=== PATIENT | male | born 1945 | race Caucasian/White ===

== ENCOUNTER 2016-07-20 12:18 | Emergency (ER) | payer MEDICARE, BC ==
[2016-07-20] MEDS ORDERED: Sodium Chloride 0.9% 10 ML Syringe FLUSH PRN (12:19)
--- NOTE | 2016-07-20 12:19 | EDM.PDOC ---
ED HPI GENERAL MEDICAL PROBLEM - General Chief Complaint: General Stated Complaint: vomitting abd pain Time Seen by Provider: 07/20/16 12:19 Source of Information: Reports: Patient, Family (), Old records ([facility] chart/EMR) History Limitations: Reports: No limitations - History of Present Illness INITIAL COMMENTS - FREE TEXT/NARRATIVE: The patient was brought to the emergency room via private automobile by his for evaluation of refractory nausea/emesis and dry heaves with symptoms starting at about 6 a.m. this morning after he had coffee and donuts. No known exposure to infection, food poisoning, etc. with symptoms similar to his past post cholecystectomy-type symptoms. Possible history of fever and chills, although temperature not measured with no medications taken to this point. He denies any gross hematuria, dysuria, or other colic type symptoms. No recent history of true abdominal pain, heartburn, melena, gross hematochezia, or any food intolerance, including fatty foods, etc. with mild loose stools earlier this morning. The patient denies any chest pain/pressure, heart flutter, dizziness, orthostasis, orthopnea, diaphoresis, paresthesias, recent decreased exercise tolerance, or any other anginal-type symptoms. The patient also denies any recent cough, wheezing, dyspnea, etc.. Onset: today, sudden Onset Date: 07/20/16 Onset Time: 06:00 Duration: Constant, Getting worse Location: Reports: other (No true pain) Severity: severe (Dry heaves as above) Improves with: Reports: None Worsens with: Reports: None Context: Reports: Other (As above) Associated Symptoms: Reports: fever/chills, nausea/vomiting. Denies: confusion , chest pain, cough, diaphoresis, loss of appetite, seizure (None), shortness of breath, syncope, weakness Treatments [employer]: Reports: Other (see below) (None) - Related Data Allergies Allergy/AdvReac Type Severity Reaction Status Date / Time No Known Allergies Allergy Verified 01/01/16 10:23 Home Meds: Home Meds Aspirin [Leonardo Chewable Aspirin] 81 mg PO DAILY 12/30/15 [History] Colesevelam HCl [Welchol] 3 tab PO BID 12/30/15 [History] Fenofibrate,Micronized [Fenofibrate] 134 mg PO BEDTIME 12/30/15 [History] Lisinopril 5 mg PO DAILY 12/30/15 [History] Multivitamin with Minerals [Multiple Vitamin] 1 tab PO DAILY 12/30/15 [History] [place]-3 Fatty Acids [Fish Oil] 1 tab PO DAILY 07/20/16 [History] Past Medical History HEENT History: Reports: Impaired vision, Other (see below). Denies: Allergic rhinitis, Cataract, Glaucoma, Hard of hearing, Macular degeneration, Retinal detachment Other HEENT History: glasses Cardiovascular History: Reports: High cholesterol, Hypertension, Other (see below). Denies: Afib, Aneurysm, Arrhythmia, Blood clots/VTE/DVT, CAD, Heart Failure, Heart murmur, PR, Pacemaker, PTCA, PVD, Stents, Syncope Other Cardiovascular History: History of dyslipidemia with secondary fatty liver Respiratory History: Reports: COPD, Intubation, previous, Pulmonary fibrosis. Denies: Asthma, Bronchitis, recurrent, Interstitial lung disease, Intubation, difficult, PE, Pneumothorax, Sleep apnea, TB Gastrointestinal History: Reports: Cholelithiasis, Chronic constipation, Colon polyp, GERD, Other (see below). Denies: Bowel obstruction, Celiac disease, Chronic diarrhea, Diverticulosis, Fecal incontinence, Gastritis, Hepatitis, Hiatal hernia, Inflammatory bowel disease, Irritable bowel syndrome, Jaundice, Pancreatitis, PUD Other Gastrointestinal History: History of benign hepatic cysts and renal cysts by CT scan, fatty liver as above, cholecystectomy as below, benign serrated adenoma at the cecum excised by colonoscopy on 08/31/11 Genitourinary History: Reports: BPH. Denies: Acute renal failure, Chronic renal insuffiency, Renal calculus, Retention, urinary, STD, Urinary incontinence , UTI, recurrent Musculoskeletal History: Reports: Arthritis, Back pain, chronic, Fracture, Neck pain, chronic, Osteoarthritis, Other (see below). Denies: Amputation, Fibromyalgia, Gout, RA, SLE Other Musculoskeletal History: History of left-sided rib fractures #6 through 9 on 12/21/01, left medial meniscal tear by MRI on 09/09/07 with no surgery Neurological History: Reports: None, Other (see below). Denies: Brain injury, Cerebral aneurysms, Concussion, CVA, Headaches, chronic, Head trauma, Migraines , MS, Parkinson's, Seizure, TIA Psychiatric History: Reports: None. Denies: Abuse, victim of, ADD, ADHD, Addiction, Anxiety, Dementia, Depression, Psych Hospitalization(s), PTSD, Suicide attempt, Suicidal ideation Endocrine/Metabolic History: Reports: None. Denies: Diabetes, type I, Diabetes , type II, Hypothyroidism, IDDM Hematologic History: Reports: None. Denies: Anemia, B12 deficiency, Blood transfusion(s) Immunologic History: Reports: None. Denies: AIDS, HIV, SLE Oncologic (Cancer) History: Reports: None. Denies: Basal cell carcinoma, Colon , Hodgkin's Lymphoma, Leukemia, Malignant melanoma, Non-Hodgkin's Lymphoma, Prostate, Squamous cell carcinoma Dermatologic History: Reports: None. Denies: Angiodema, Eczema, Psoriasis - Infectious Disease History Infectious Disease History: Reports: Chicken pox. Denies: C-difficile, Measles , Meningitis, Mononucleosis, MRSA, Mumps, Pertussis (whooping cough), Rubella, Shingles, TB, VRE - Past Surgical History Head Surgeries/Procedures: Reports: None HEENT Surgical History: Reports: Oral surgery, Other (see below). Denies: Adenoidectomy, Cataract surgery, Eye surgery, Laser surgery, LASIK, Myringotomy w tube(s), Naso-sinus surgery, Tonsillectomy Other HEENT Surgeries/Procedures: Teeth extractions with chronic caries Cardiovascular Surgical History: Reports: None. Denies: Varicose Respiratory Surgical History: Reports: None. Denies: Thoracentesis GI Surgical History: Reports: Cholecystectomy, Colonoscopy, Polypectomy, Other ( see below). Denies: Appendectomy, EGD, Hernia, abdominal, Hernia, inguinal, Hernia repair/other Other GI Surgeries/Procedures: Colonoscopy on 08/31/11 with biopsy of benign lesion from the cecum as above, laparoscopic cholecystectomy on 01/07/16 Male Surgical History: Reports: Circumcision, Other (see below). Denies: TURP-Transurethral resection of prostate, Vasectomy Other Male Surgeries/Procedures: Circumcision as a child Endocrine Surgical History: Reports: None Neurological Surgical History: Reports: None. Denies: C-Spine, Discectomy, Laminectomy, Lumbar spine, Spinal fusion, Vertebroplasty Musculoskeletal Surgical History: Reports: Arthroscopic procedure, Carpal tunnel , Shoulder surgery, Other (see below). Denies: Amputation, Arthroscopic knee, Ganglion cyst, Joint replacement, ORIF Other Musculoskeletal Surgeries/Procedures:: Rotator cuff repair on right shoulder on 09/28/11, bilateral carpal tunnel release in about 2001 Oncologic Surgical History: Reports: None Dermatological Surgical History: Reports: None - Past Imaging History Past Imaging History: Reports: CAT scan (CT scan of the abdomen and pelvis with IV and oral contrast on 12/30/15 in 01/08/16), MRI (MRI of the right shoulder on 09/05/11, MRI of the left knee on 09/09/07), Stress testing (Cardiolite Stress test on 07/03/03), Ultrasound (Gallbladder ultrasound on 12/31/15) Social & Family History - Family History HEENT: Reports: None. Denies: Allergic rhinitis, Glaucoma, Macular degeneration , Retinal detachment Cardiac: Reports: None. Denies: Afib, Aneurysm, Arrhythmia, Blood clots/VTE/DVT , Bypass, CAD, Heart failure, Heart murmur, High cholesterol, Hypertension, PR, PVD/COD, Syncope Respiratory: Reports: None. Denies: Asthma, COPD, PE, Sleep apnea GI: Reports: None. Denies: Celiac disease, Cholelithiasis, Colon polyps, GERD, GI bleed, Inflammatory bowel disease, Irritable bowel syndrome, PUD : Reports: None. Denies: Dialysis, Renal disease/insufficiency, UTI, recurrent OBGYN: Reports: None. Denies: Endometriosis, Recurrent spontaneous Musculoskeletal: Reports: None. Denies: Gout, RA, SLE Neurological: Reports: Cerebral aneurysms, CVA, Other (see below). Denies: Alzheimers disease, Dementia, Migraines, Parkinson's, Seizure, TIA Other Neurological Family History: Mother with fatal hemorrhagic CVAs secondary to cerebral aneurysm at about age 68 Psychiatric: Denies: Abuse, victim of, ADD, ADHD, Anxiety, Depression, Psych hospitalization(s), PTSD, Suicide attempt Endocrine/Metabolic: Reports: None. Denies: Diabetes, type I, Diabetes, type II , Hypothyroidism, IDDM Hematologic: Reports: None. Denies: Anemia, SLE Immunologic: Reports: None. Denies: AIDS, HIV, Immunosuppression Dermatologic: Reports: None. Denies: Eczema, Psoriasis Oncologic: Reports: Breast, Colon, Lung, Metastatic, Other (see below). Denies : Hodgkin's lymphoma, Leukemia, Lymphoma, Non-Hodgkin's lymphoma, Skin Other Oncologic Family History: Sister with multiple cancers including breast, colon, and lung with probable metastatic disease, another sister with breast cancer in her 70s - Tobacco Use Smoking Status *Q: Current Every Day Smoker Tobacco Use Within Last Twelve Months: Snuff/Dip Years of Tobacco use: 20 Packs/Tins Daily: 0 (One can per week with previous cigarette use in early adulthood and as a teenager) Smoking Cessation Information Provided To Patient: Yes Second Hand Smoke Exposure: No Second Hand Smoke Education Provided: No - Caffeine Use Caffeine Use: Reports: Coffee (2 cups per day), Soda (One soda per day). Denies : Energy drinks, Tea - Alcohol Use Alcohol Use History: Yes Days Per Week of Alcohol Use: 0 (No previous DWIs, problems with alcohol abuse, etc.) Number of Drinks Per Day: 1 (Usually beer only on special occasions) Total Drinks Per Week: 0 Alcohol Use Frequency: Rarely, Socially - Recreational Drug Use Recreational Drug Use: No Drug Use in Last 12 Months: No Recreational Drug Type: Denies: Amphetamines (Speed), Cocaine, Heroin, Inhalants (Glues, Solvents, Aerosols), LSD (Acid), Marijuana/Hashish, Methamphetamine, Morphine - Living Situation & Occupation Living situation: Reports: (1968, 3 children), with family () Occupation: employed (Semiretired [employer]) ED ROS GENERAL - Review of Systems Review Of Systems: See Below Constitutional: Reports: fever, chills. Denies: malaise, weakness, fatigue, night sweats, diaphoresis, decreased appetite, weight loss HEENT: Reports: Glasses. Denies: Dental pain, Ear pain, Eye pain, Throat pain, Throat swelling, Vertigo, Vision change Respiratory: Reports: No Symptoms. Denies: Shortness of Breath, Wheezing, Pleuritic Chest Pain Cardiovascular: Reports: No symptoms. Denies: Chest pain, Blood pressure problem, Claudication, Dyspnea on exertion, Edema, Lightheadedness, Orthopnea, Palpitations, PND, Syncope Endocrine: Reports: no symptoms. Denies: fatigue GI/Abdominal: Reports: Diarrhea (Borderline), Nausea, Vomiting. Denies: Abdominal pain, Anorexia, Black stool, Bloody stool, Constipation, Decreased appetite, Difficulty swallowing, Distension, Flatus, Hematemesis, Hematochezia, Melena, Mucous in stool, Stool incontinence : Reports: no symptoms. Denies: discharge, dysuria, flank pain, frequency, hematuria, incontinence, pain, urgency, urinary retention Musculoskeletal: Reports: no symptoms. Denies: neck pain, shoulder pain, arm pain, leg pain, joint pain Skin: Reports: no symptoms. Denies: diaphoresis, wound Neurological: Reports: No Symptoms. Denies: Confusion, Dizziness, Headache, Numbness, Paresthesia, Syncope, Tingling, Weakness Psychiatric: Reports: No symptoms. Denies: Agitation, Anxiety, Confusion, Depression, Hallucinations Hematologic/Lymphatic: Reports: no symptoms Immunologic: Reports: no symptoms ED EXAM, GENERAL - Physical Exam Exam: See Below Exam Limited By: No limitations General Appearance: alert, WD/WN, anxious (Moderate), mild distress (Mild) Eye Exam: bilateral eye: EOMI, normal inspection (No nystagmus), PERRL Ears: normal external exam, normal canal, hearing grossly normal, normal TMs Nose: normal inspection, normal mucosa, no blood Throat/Mouth: Normal inspection, Normal lips, Normal gums, Normal oropharynx, Normal voice, No airway compromise. No: Normal teeth (Multiple missing teeth with somewhat poor dentition and large caries and broken teeth into the gumline in the next to last left lower premolar; no drainage, abscess, facial swelling, etc.), Dysphagia, Inflammation Head: atraumatic, normocephalic. No: facial swelling, facial tenderness, sinus tenderness Neck: normal inspection, supple, non-tender, full range of motion. No: carotid bruit, lymphadenopathy (L), lymphadenopathy (R), thyromegaly Respiratory/Chest: no respiratory distress, lungs clear, normal breath sounds, no accessory muscle use, chest non-tender. No: pleural rub, retractions, prolonged expiration Cardiovascular: normal peripheral pulses, regular rate, rhythm, no edema, no gallop, no JVD, no murmur, no rub. No: gallop/S3, gallop/S4, friction rub Peripheral Pulses: 4+: radial (L), radial (R), dorsalis pedis (L), dorsalis pedis (R) GI/Abdominal: normal bowel sounds, soft, non tender, no organomegaly, no distention, no abnormal bruit, no mass, other (Obese). No: guarding (Male) Exam: Deferred Rectal (Males) Exam: Normal exam, Normal rectal tone, Prostate normal, BPH ( Mild to moderate), Heme - stool (Brown stool). No: Fecal impaction, Tenderness (No Hung space tenderness) Back Exam: normal inspection, full range of motion. No: CVA tenderness (L), CVA tenderness (R), muscle spasm Extremities: normal inspection, normal range of motion, non-tender, no pedal edema, normal capillary refill. No: Sharonda's Sign Neurological: alert, oriented, CN II-XII intact, normal cognition, normal gait, normal reflexes (Negative Babinski's), no motor/sensory deficits Psychiatric: anxious (Moderate). No: depressed mood Skin Exam: Warm, Dry, Intact, Normal color, No rash. No: Diaphoretic, Ecchymosis, Jaundice, Wound/incision Lymphatic: no adenopathy Course - Vital Signs Last Recorded V/S: Last Vital Signs Temp 36.8 C 07/20/16 16:11 Pulse 99 07/20/16 16:11 Resp 16 07/20/16 16:11 BP 155/75 H 07/20/16 16:11 Pulse Ox 98 07/20/16 16:11 Vital Signs - 24 hr 07/20/16 07/20/16 07/20/16 12:18 12:49 12:51 Temperature [ 35.5 C 35.5 C Axillary] Pulse, 77 73 Peripheral [ Right Pulse Oximetry] Respiratory 13 13 Rate Blood Pressure 149/97 H 169/93 H [Right Upper Arm] O2 Sat by Pulse 100 100 Oximetry 07/20/16 07/20/16 07/20/16 13:35 13:49 14:05 Temperature [ Axillary] Pulse, 87 92 97 Peripheral [ Right Pulse Oximetry] Respiratory 15 15 18 Rate Blood Pressure 131/64 191/96 H 174/94 H [Right Upper Arm] O2 Sat by Pulse 100 100 98 Oximetry 07/20/16 07/20/16 14:28 16:11 Temperature [ 36.8 C Axillary] Pulse, 89 99 Peripheral [ Right Pulse Oximetry] Respiratory 18 16 Rate Blood Pressure 164/94 H 155/75 H [Right Upper Arm] O2 Sat by Pulse 100 98 Oximetry - Orders/Labs/Meds Orders: Active Orders 24 hr Category Date Time Status Peripheral IV Care [RC] . DIRECTED Care 07/20/16 12:20 Active Abdomen Pelvis w Cont [CT] Stat Exams 07/20/16 14:38 Taken Abdomen Series w Chest 1V [CR] Stat Exams 07/20/16 12:20 Taken CULTURE URINE [RM] Routine Lab 07/20/16 15:24 Received Lactated Ringers [Ringers, Lactated] 1,000 ml Med 07/20/16 14:15 Active IV ASDIRECTED Sodium Chloride 0.9% [Saline Flush] Med 07/20/16 12:19 Active 10 ml FLUSH ASDIRECTED PRN Obtain Past Medical Record [OM.PC] Routine Oth 07/20/16 12:21 Active Peripheral IV Insertion Adult [OM.PC] Routine Oth 07/20/16 12:19 Ordered Medication Orders Lactated Ringer's (Ringers, Lactated) 1,000 mls @ 100 mls/hr IV ASDIRECTED MATT Last Admin: 07/20/16 14:07 Dose: 100 mls/hr Sodium Chloride (Saline Flush) 10 ml FLUSH ASDIRECTED PRN PRN Reason: Keep Vein Open Last Admin: 07/20/16 16:22 Dose: 10 ml Labs: Laboratory Tests 07/20/16 07/20/16 07/20/16 Range/Units 12:40 12:40 12:40 WBC 11.6 H (4.0-10.2) K/uL RBC 5.35 (4.33-5.41) M/uL Hgb 15.7 (13.1-16.8) g/dL Hct 47.7 (39.0-49.0) % MCV 89.2 (84.0-98.0) fL MCH 29.3 (28.2-33.3) pg MCHC 32.9 (31.7-36.0) g/dL RDW 14.3 H (11.2-14.1) % Plt Count 341 D (150-350) K/uL Neut % (Auto) 83.7 H (45.0-80.0) % Lymph % (Auto) 12.4 (10.0-50.0) % [place] % (Auto) 3.1 (2.0-14.0) % Eos % (Auto) 0.4 (0.0-5.0) % Baso % (Auto) 0.4 (0.0-2.0) % Neut # (Auto) 9.67 H (1.40-7.00) K/uL Lymph # (Auto) 1.43 (0.50-3.50) K/uL [place] # (Auto) 0.36 (0.00-1.00) K/uL Eos # (Auto) 0.05 (0.00-0.50) K/uL Baso # (Auto) 0.05 (0.00-0.20) K/uL Sodium 138 (136-145) mmol/L Potassium 4.3 (3.5-5.1) mmol/L Chloride 104 (98-107) mmol/L Carbon Dioxide 21.8 (21.0-32.0) mmol/L BUN 28 H (7-18) mg/dL Creatinine 0.94 (0.51-1.17) mg/dL Est Cr Clr Drug Dosing TNP Estimated GFR (MDRD) > 60 mL/min Glucose 128 H (74-106) mg/dL Lactic Acid 2.9 H (0.4-2.0) mmol/L Uric Acid 5.7 (2.6-7.2) mg/dL Calcium 9.6 (8.5-10.1) mg/dL Magnesium 1.8 (1.8-2.4) mg/dL Total Bilirubin 0.3 (0.2-1.0) mg/dL AST 24 (15-37) U/L ALT 32 (12-78) U/L Alkaline Phosphatase 93 (46-116) IU/L Total Protein 8.4 H (6.4-8.2) g/dL Albumin 4.1 (3.4-5.0) g/dL Amylase 56 (25-115) U/L Lipase 184 (73-393) U/L Specimen Type Urine Color Urine Appearance Urine pH (5.0-9.0) Ur Specific [place] (1.005-1.030) Urine Protein (NEGATIVE) mg/dL Urine Glucose (UA) (NEGATIVE) mg/dL Urine Ketones (NEGATIVE) mg/dL Urine Occult Blood (NEGATIVE) Urine Nitrite (NEGATIVE) Urine Bilirubin (NEGATIVE) Urine Urobilinogen (0.2-1.0) E.U./dL Ur Leukocyte Esterase (NEGATIVE) Urine RBC /HPF Urine WBC /HPF Ur Epithelial Cells /LPF Urine Bacteria (NONE TO FEW) /HPF Urine Mucus (NEGATIVE) /LPF H. pylori IgG Antibody (NEGATIVE) 07/20/16 07/20/16 Range/Units 12:40 15:24 WBC (4.0-10.2) K/uL RBC (4.33-5.41) M/uL Hgb (13.1-16.8) g/dL Hct (39.0-49.0) % MCV (84.0-98.0) fL MCH (28.2-33.3) pg MCHC (31.7-36.0) g/dL RDW (11.2-14.1) % Plt Count (150-350) K/uL Neut % (Auto) (45.0-80.0) % Lymph % (Auto) (10.0-50.0) % [place] % (Auto) (2.0-14.0) % Eos % (Auto) (0.0-5.0) % Baso % (Auto) (0.0-2.0) % Neut # (Auto) (1.40-7.00) K/uL Lymph # (Auto) (0.50-3.50) K/uL [place] # (Auto) (0.00-1.00) K/uL Eos # (Auto) (0.00-0.50) K/uL Baso # (Auto) (0.00-0.20) K/uL Sodium (136-145) mmol/L Potassium (3.5-5.1) mmol/L Chloride (98-107) mmol/L Carbon Dioxide (21.0-32.0) mmol/L BUN (7-18) mg/dL Creatinine (0.51-1.17) mg/dL Est Cr Clr Drug Dosing Estimated GFR (MDRD) mL/min Glucose (74-106) mg/dL Lactic Acid (0.4-2.0) mmol/L Uric Acid (2.6-7.2) mg/dL Calcium (8.5-10.1) mg/dL Magnesium (1.8-2.4) mg/dL Total Bilirubin (0.2-1.0) mg/dL AST (15-37) U/L ALT (12-78) U/L Alkaline Phosphatase (46-116) IU/L Total Protein (6.4-8.2) g/dL Albumin (3.4-5.0) g/dL Amylase (25-115) U/L Lipase (73-393) U/L Specimen Type Urincc Urine Color Yellow Urine Appearance Clear Urine pH 8.5 (5.0-9.0) Ur Specific [place] 1.020 (1.005-1.030) Urine Protein 30 H (NEGATIVE) mg/dL Urine Glucose (UA) Negative (NEGATIVE) mg/dL Urine Ketones Negative (NEGATIVE) mg/dL Urine Occult Blood Negative (NEGATIVE) Urine Nitrite Negative (NEGATIVE) Urine Bilirubin Negative (NEGATIVE) Urine Urobilinogen 0.2 (0.2-1.0) E.U./dL Ur Leukocyte Esterase Negative (NEGATIVE) Urine RBC 0-5 /HPF Urine WBC 0-5 /HPF Ur Epithelial Cells Few /LPF Urine Bacteria Few (NONE TO FEW) /HPF Urine Mucus Few H (NEGATIVE) /LPF H. pylori IgG Antibody Negative (NEGATIVE) Meds: Medications Generic Name Dose Route Start Last Admin Trade Name Freq PRN Reason Stop Dose Admin Lactated Ringer's 1,000 mls @ 100 mls/hr 07/20/16 14:15 07/20/16 14:07 Ringers, Lactated IV 100 mls/hr ASDIRECTED MATT Administration Sodium Chloride 10 ml 07/20/16 12:19 07/20/16 16:22 Saline Flush FLUSH 10 ml ASDIRECTED PRN Administration Keep Vein Open Discontinued Medications Generic Name Dose Route Start Last Admin Trade Name Freq PRN Reason Stop Dose Admin Diazepam 2.5 mg 07/20/16 13:40 07/20/16 13:44 Valium IVPUSH 07/20/16 13:41 2.5 mg ONETIME ONE Administration Diazepam 2.5 mg 07/20/16 14:03 07/20/16 14:08 Valium IVPUSH 07/20/16 14:04 2.5 mg ONETIME ONE Administration Diazepam 2.5 mg 07/20/16 14:39 07/20/16 14:43 Valium IVPUSH 07/20/16 14:40 2.5 mg ONETIME ONE Administration Famotidine 40 mg 07/20/16 12:22 07/20/16 12:29 Pepcid IVPUSH 07/20/16 12:23 40 mg ONETIME ONE Administration Glucagon 1 mg 07/20/16 15:48 07/20/16 16:03 Glucagen IVPUSH 07/20/16 15:49 1 mg ONETIME ONE Administration Lactated Ringer's 1,000 mls @ 999 mls/hr 07/20/16 12:22 07/20/16 12:27 Ringers, Lactated IV 07/20/16 13:22 999 mls/hr .BOLUS ONE Administration Ceftriaxone Sodium 1 gm/ 100 mls @ 200 mls/hr 07/20/16 15:24 07/20/16 15:31 Sodium Chloride IV 07/20/16 15:53 200 mls/hr ONETIME ONE Administration Metronidazole 500 mg/ Premix 100 mls @ 100 mls/hr 07/20/16 16:11 07/20/16 16: 19 IV 07/20/16 17:10 100 mls/hr ONETIME ONE Administration Iopamidol 100 ml 07/20/16 14:43 07/20/16 15:08 Isovue-300 (61%) IVPUSH 07/20/16 14:44 100 ml ONETIME ONE Administration Metoclopramide HCl 10 mg 07/20/16 13:02 07/20/16 13:22 Reglan IVPUSH 07/20/16 13:03 10 mg ONETIME ONE Administration Ondansetron HCl 4 mg 07/20/16 12:20 07/20/16 12:23 Zofran IVPUSH 07/20/16 12:21 4 mg ONETIME ONE Administration Ondansetron HCl 4 mg 07/20/16 13:02 07/20/16 13:26 Zofran IVPUSH 07/20/16 13:03 4 mg ONETIME ONE Administration Ondansetron HCl 4 mg 07/20/16 15:08 07/20/16 15:15 Zofran IVPUSH 07/20/16 15:09 4 mg ONETIME ONE Administration Pantoprazole Sodium 40 mg 07/20/16 12:22 07/20/16 12:29 Protonix Iv IVPUSH 07/20/16 12:23 40 mg ONETIME ONE Administration Promethazine HCl 75 mg 07/20/16 13:02 07/20/16 13:09 Phenergan IM 07/20/16 13:03 75 mg ONETIME ONE Administration - Radiology Interpretation Free Text/Narrative:: Acute abdominal x-rays shows evidence of status post laparoscopic cholecystectomy with moderate diffuse stool and no evidence of free air, ileus, or obstruction. There is evidence of a fluid level and some nonspecific colonic distention in the proximal aspect of the ascending colon. Moderate COPD and pulmonary fibrotic changes with additional moderate prominence of the proximal aortic arch. No significant cardiomegaly, CHF, or pulmonary infiltrates, although pulmonary hypertension likely present. Mildly elevated right hemidiaphragm Telephone consultation at 15:43 hours with the radiology department at [facility] with verbal report of CT scan of the abdomen and pelvis with IV contrast. Diffuse diverticulosis noted with no direct evidence of diverticulitis, appendicitis, free air, volvulus, etc. No masses or polyps seen in the cecal area although borderline ileus is present in this region CT Results Date: 07/20/16 CT Results Time: 15:43 Departure - Departure Time of Disposition: 17:12 Disposition: DC/Tfer to [facility] 02 Condition: fair Clinical Impression: Dyslipidemia, Lactic acid increased, Peptic reflux disease, Caries, Tobacco abuse counseling, Serrated adenoma of colon Nausea & vomiting Qualifiers: Vomiting type: unspecified Vomiting Intractability: intractable Qualified Code( s): R11.2 - Nausea with vomiting, unspecified COPD (chronic obstructive pulmonary disease) Qualifiers: COPD type: emphysema Emphysema type: panlobular Qualified Code(s): J43.1 - Panlobular emphysema Hypertension Qualifiers: Hypertension type: essential hypertension Qualified Code(s): I10 - Essential ( primary) hypertension Osteoarthritis Qualifiers: Osteoarthritis location: multiple joints Osteoarthritis type: primary Qualified Code(s): M15.0 - Primary generalized (osteo)arthritis Diverticulosis Qualifiers: Diverticulosis site: diverticulosis of large intestine Diverticulosis bleeding : diverticulosis without bleeding Qualified Code(s): K57.30 - Diverticulosis of large intestine without perforation or abscess without bleeding Referrals: PCP,None [Primary Care Provider] - Forms: ED Department Discharge, Interfacility Transfer EMTALA - Problem List & Annotations (1) Nausea & vomiting SNOMED Code(s): 72299085 Code(s): R11.2 - NAUSEA WITH VOMITING, UNSPECIFIED Status: Acute Priority : High Current Visit: Yes Onset Date: 07/20/16 Annotation/Comment:: Refractory nausea/emesis/dry heaves with aggressive medical therapy as above. Note history of benign serous adenoma in the cecal area with x-ray findings as above. His colonoscopy is behind schedule with patient and his advised to be repeat this in the near future and/or during this hospitalization in [place]. Some anxiety component to his above symptoms with IV diazepam given in the emergency room as above, which did appear effective at times. Telephone consultation at 15:[address] Odonnell, hospitalist at [facility] in [place], who does accept the patient for direct admission, with no further treatment recommendations given. Note borderline by CT scan as above. Patient unable to tolerate oral contrast secondary to refractory nausea/emesis. Persistent refractory symptoms at time of transfer. IV Rocephin and IV Flagyl given in the emergency room as prophylaxis as above with mild leukocytosis today Qualifiers: Vomiting type: unspecified Vomiting Intractability: intractable Qualified Code(s): R11.2 - Nausea with vomiting, unspecified (2) Lactic acid increased SNOMED Code(s): 01502284 Code(s): E87.2 - ACIDOSIS Status: Acute Priority: High Current Visit: Yes Onset Date: 07/20/16 Annotation/Comment:: Lactic acid elevation with no clinical evidence of sepsis. IV LR given in the emergency room. Observe for now (3) COPD (chronic obstructive pulmonary disease) SNOMED Code(s): 07742542 Code(s): J44.9 - CHRONIC OBSTRUCTIVE PULMONARY DISEASE, UNSPECIFIED Status : Chronic Priority: Medium Current Visit: Yes Annotation/Comment:: Stable by patient history with no recent bronchitic-type symptoms or history of aspiratation Qualifiers: COPD type: emphysema Emphysema type: panlobular Qualified Code(s): J43.1 - Panlobular emphysema (4) Dyslipidemia SNOMED Code(s): 689009011 Code(s): E78.5 - HYPERLIPIDEMIA, UNSPECIFIED Status: Chronic Priority: Medium Current Visit: Yes Annotation/Comment:: History of dyslipidemia with current medical therapy (5) Hypertension SNOMED Code(s): 78559185 Code(s): I10 - ESSENTIAL (PRIMARY) HYPERTENSION Status: Chronic Priority : Medium Current Visit: Yes Annotation/Comment:: Blood Pressures were stable in the emergency room Qualifiers: Hypertension type: essential hypertension Qualified Code(s): I10 - Essential (primary) hypertension (6) Osteoarthritis SNOMED Code(s): 964474464 Code(s): M19.90 - UNSPECIFIED OSTEOARTHRITIS, UNSPECIFIED SITE Status: Chronic Priority: Medium Current Visit: Yes Annotation/Comment:: Stable by patient history Qualifiers: Osteoarthritis location: multiple joints Osteoarthritis type: primary Qualified Code(s): M15.0 - Primary generalized (osteo)arthritis (7) Peptic reflux disease SNOMED Code(s): 19796037 Code(s): K21.9 - GASTRO-ESOPHAGEAL REFLUX DISEASE WITHOUT ESOPHAGITIS Status: Chronic Priority: Medium Current Visit: Yes Annotation/Comment:: Stable by patient history with high-dose IV Protonix and IV Pepcid given in the emergency room (8) Caries SNOMED Code(s): 07398547 Code(s): K02.9 - DENTAL CARIES, UNSPECIFIED Status: Chronic Priority: Medium Current Visit: Yes Onset Date: ~07/20/16 Annotation/Comment:: Followup with dentist MATHIEU advised (9) Tobacco abuse counseling SNOMED Code(s): 773196113, 513833265, 884184135 Code(s): Z71.6 - TOBACCO ABUSE COUNSELING Status: Chronic Priority: Medium Current Visit: Yes Annotation/Comment:: Patient is apparently sneaking chewing tobacco use at this time. Tobacco cessation strongly advised with information provided (10) Diverticulosis SNOMED Code(s): 357624808 Code(s): K57.90 - DVRTCLOS OF INTEST, PART UNSP, W/O PERF OR ABSCESS W/O BLEED Status: Acute Priority: Medium Current Visit: Yes Onset Date: ~07/03 Annotation/Comment:: Newly diagnosed diverticulosis today with no direct evidence of diverticulitis Qualifiers: Diverticulosis site: diverticulosis of large intestine (11) Serrated adenoma of colon SNOMED Code(s): 796666595, 961456705 Code(s): D12.6 - BENIGN NEOPLASM OF COLON, UNSPECIFIED Status: Chronic Priority: Medium Current Visit: Yes Onset Date: 01/07/12 Annotation/ Comment:: Repeat colonoscopy advisable as above - Problem List Review Problem List Initiated/Reviewed/Updated: Yes - My Orders Last 24 Hours: My Active Orders 07/20/16 12:19 Sodium Chloride 0.9% [Saline Flush] 10 ml FLUSH ASDIRECTED PRN Peripheral IV Insertion Adult [OM.PC] Routine 07/20/16 12:20 Peripheral IV Care [RC] . DIRECTED Abdomen Series w Chest 1V [CR] Stat 07/20/16 12:21 Obtain Past Medical Record [OM.PC] Routine 07/20/16 14:15 Lactated Ringers [Ringers, Lactated] 1,000 ml IV ASDIRECTED 07/20/16 14:38 Abdomen Pelvis w Cont [CT] Stat 07/20/16 15:24 CULTURE URINE [RM] Routine - Assessment/Plan Last 24 Hours: My Active Orders 07/20/16 12:19 Sodium Chloride 0.9% [Saline Flush] 10 ml FLUSH ASDIRECTED PRN Peripheral IV Insertion Adult [OM.PC] Routine 07/20/16 12:20 Peripheral IV Care [RC] . DIRECTED Abdomen Series w Chest 1V [CR] Stat 07/20/16 12:21 Obtain Past Medical Record [OM.PC] Routine 07/20/16 14:15 Lactated Ringers [Ringers, Lactated] 1,000 ml IV ASDIRECTED 07/20/16 14:38 Abdomen Pelvis w Cont [CT] Stat 07/20/16 15:24 CULTURE URINE [RM] Routine Assessment:: As above Plan: As above. Extensive precautions were given to the patient and his , who are in agreement with the treatment plan.
[2016-07-20] MEDS ORDERED: Ondansetron 4 MG/2 ML SDV IVPUSH ONE ×3 (12:20→15:08)
[2016-07-20] MEDS ORDERED: Famotidine 20 MG/2 ML SDV IVPUSH ONE (12:22)
[2016-07-20] MEDS ORDERED: Lactated Ringers 1,000 ML IV ONE (12:22)
[2016-07-20] MEDS ORDERED: Pantoprazole 40 MG Vial IVPUSH ONE (12:22)
[2016-07-20] MEDS ORDERED: Metoclopramide 10 MG/2 ML SDV IVPUSH ONE (13:02)
[2016-07-20] MEDS ORDERED: Promethazine 25 MG/ML SDV IM ONE (13:02)
[2016-07-20 13:04] LABS: CHLORIDE,CL 104 mmol/L (98-107); SODIUM,NA 138 mmol/L (136-145)
[2016-07-20] MEDS ORDERED: Lactated Ringers 1,000 ML IV SCH (14:15)
[2016-07-20] MEDS ORDERED: Iopamidol 612 MG/ML 100 ML Bottle IVPUSH ONE (14:43)
[2016-07-20] MEDS ORDERED: cefTRIAXone 1 GM in Sodium Chloride 0.9% 100 ML IV ONE (15:24)
[2016-07-20] MEDS ORDERED: Glucagon,Human Recombinant 1 MG Vial IVPUSH ONE (15:48)
[2016-07-20] MEDS ORDERED: metroNIDAZOLE/Normal Saline 500 MG in Premix Bag 1 BAG IV ONE (16:11)
[2016-07-22 07:38] VITALS: BP 124/78
== END 2016-07-20 17:12 ==
LOC: LL.ED 12:18
DX: K57.30 Diverticulosis of large intestine without perforation or abscess without bleeding (principal); K21.9 Gastro-esophageal reflux disease without esophagitis; E78.5 Hyperlipidemia, unspecified; J43.1 Panlobular emphysema; I10 Essential (primary) hypertension; M15.0 Primary generalized (osteo)arthritis; E87.2 Acidosis; F17.210 Nicotine dependence, cigarettes, uncomplicated; D12.6 Benign neoplasm of colon, unspecified; Z71.6 Tobacco abuse counseling; Z79.82 Long term (current) use of aspirin; Z79.899 Other long term (current) drug therapy; E78.00 Pure hypercholesterolemia, unspecified; Z90.49 Acquired absence of other specified parts of digestive tract; Z98.890 Other specified postprocedural states
CPT/HCPCS: 36415; 74022; 74177; 80053; 81001; 82150; 82272; 83605; 83690; 83735; 84550; 85025; 86318; 87086; 87804; 99285; C9113; J0696; J1610; J2405; J2550; J2765; J3360; J7050; J7120; Q9967; 96365; 96366; 96368; 96372; 96375; 96376; S0028

== ENCOUNTER 2016-07-22 13:35 | Emergency (ER) | payer MEDICARE, BC ==
[2016-07-22 14:17] LABS: CHLORIDE,CL 102 mmol/L (98-107); SODIUM,NA 137 mmol/L (136-145)
[2016-07-22] MEDS ORDERED: Ondansetron 4 MG/2 ML SDV IVPUSH ONE (14:21)
[2016-07-22] MEDS ORDERED: Sodium Chloride 0.9% 10 ML Syringe FLUSH PRN (14:21)
[2016-07-22] MEDS ORDERED: Sodium Chloride 0.9% 1,000 ML IV SCH (14:30)
[2016-07-22] MEDS ORDERED: Iopamidol 612 MG/ML 100 ML Bottle IVPUSH ONE (15:14)
[2016-07-22] MEDS ORDERED: Promethazine 25 MG/ML SDV IM ONE (16:21)
--- NOTE | 2016-07-22 18:27 | EDM.PDOC ---
ED HPI GENERAL MEDICAL PROBLEM - General Chief Complaint: General Stated Complaint: nausea, vomiting Time Seen by Provider: 07/22/16 13:45 Source of Information: Reports: Patient, Family History Limitations: Reports: No limitations - History of Present Illness INITIAL COMMENTS - FREE TEXT/NARRATIVE: Was seen 3 days ago in ER for same symptoms. Sent to [facility]. Discharged the next day. Now with recurrent symptoms No fever. No diarrhea. Was given multiple meds previously without improvement Onset: gradual Duration: Day(s):, Recurring Location: Reports: abdomen Quality: Reports: Ache Improves with: Reports: None Worsens with: Reports: None Associated Symptoms: Reports: nausea/vomiting - Related Data Allergies Allergy/AdvReac Type Severity Reaction Status Date / Time No Known Allergies Allergy Verified 07/21/16 18:23 Home Meds: Home Meds Aspirin [Leonardo Chewable Aspirin] 81 mg PO DAILY 12/30/15 [History] Colesevelam HCl [Welchol] 3 tab PO BID 12/30/15 [History] Fenofibrate,Micronized [Fenofibrate] 134 mg PO BEDTIME 12/30/15 [History] Lisinopril 5 mg PO DAILY 12/30/15 [History] Multivitamin with Minerals [Multiple Vitamin] 1 tab PO DAILY 12/30/15 [History] [place]-3 Fatty Acids [Fish Oil] 1 tab PO DAILY 07/20/16 [History] Past Medical History HEENT History: Reports: Impaired vision, Other (see below). Denies: Allergic rhinitis, Cataract, Glaucoma, Hard of hearing, Macular degeneration, Retinal detachment Other HEENT History: glasses Cardiovascular History: Reports: High cholesterol, Hypertension, Other (see below). Denies: Afib, Aneurysm, Arrhythmia, Blood clots/VTE/DVT, CAD, Heart Failure, Heart murmur, DE, Pacemaker, PTCA, PVD, Stents, Syncope Other Cardiovascular History: History of dyslipidemia with secondary fatty liver Respiratory History: Reports: COPD, Intubation, previous, Pulmonary fibrosis. Denies: Asthma, Bronchitis, recurrent, Interstitial lung disease, Intubation, difficult, PE, Pneumothorax, Sleep apnea, TB Gastrointestinal History: Reports: Cholelithiasis, Chronic constipation, Colon polyp, GERD, Other (see below). Denies: Bowel obstruction, Celiac disease, Chronic diarrhea, Diverticulosis, Fecal incontinence, Gastritis, Hepatitis, Hiatal hernia, Inflammatory bowel disease, Irritable bowel syndrome, Jaundice, Pancreatitis, PUD Other Gastrointestinal History: History of benign hepatic cysts and renal cysts by CT scan, fatty liver as above, cholecystectomy as below, benign serrated adenoma at the cecum excised by colonoscopy on 08/31/11 Genitourinary History: Reports: BPH. Denies: Acute renal failure, Chronic renal insuffiency, Renal calculus, Retention, urinary, STD, Urinary incontinence , UTI, recurrent Musculoskeletal History: Reports: Arthritis, Back pain, chronic, Fracture, Neck pain, chronic, Osteoarthritis, Other (see below). Denies: Amputation, Fibromyalgia, Gout, RA, SLE Other Musculoskeletal History: History of left-sided rib fractures #6 through 9 on 12/21/01, left medial meniscal tear by MRI on 09/09/07 with no surgery Neurological History: Reports: None, Other (see below). Denies: Brain injury, Cerebral aneurysms, Concussion, CVA, Headaches, chronic, Head trauma, Migraines , MS, Parkinson's, Seizure, TIA Other Neuro History: Questionable single TIA prior to diagnosis of lymphoma Psychiatric History: Reports: None. Denies: Abuse, victim of, ADD, ADHD, Addiction, Anxiety, Dementia, Depression, Psych Hospitalization(s), PTSD, Suicide attempt, Suicidal ideation Endocrine/Metabolic History: Reports: None. Denies: Diabetes, type I, Diabetes , type II, Hypothyroidism, IDDM Hematologic History: Reports: None. Denies: Anemia, B12 deficiency, Blood transfusion(s) Other Hematologic History: transfusion of 2 units in February 2013, subsequent transfusion in March 2013 Immunologic History: Reports: None. Denies: AIDS, HIV, SLE Other Immunologic History: Immunosuppression with previous chemotherapy for lymphoma with no problems currently Oncologic (Cancer) History: Reports: None. 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 Additional Waldenstrom's macroglobulinemia; patient has been cancer free since fall [address] scans as below. Note previous chemotherapy with no radiation therapy Dermatologic History: Reports: None. Denies: Angiodema, Eczema, Psoriasis - Infectious Disease History Infectious Disease History: Reports: Chicken pox. Denies: C-difficile, Measles , Meningitis, Mononucleosis, MRSA, Mumps, Pertussis (whooping cough), Rubella, Shingles, TB, VRE - Past Surgical History Head Surgeries/Procedures: Reports: None HEENT Surgical History: Reports: Oral surgery, Other (see below). Denies: Adenoidectomy, Cataract surgery, Eye surgery, Laser surgery, LASIK, Myringotomy w tube(s), Naso-sinus surgery, Tonsillectomy Other HEENT Surgeries/Procedures: Teeth extractions with chronic caries Cardiovascular Surgical History: Reports: None. Denies: Varicose Respiratory Surgical History: Reports: None. Denies: Thoracentesis GI Surgical History: Reports: Cholecystectomy, Colonoscopy, Polypectomy, Other ( see below). Denies: Appendectomy, EGD, Hernia, abdominal, Hernia, inguinal, Hernia repair/other Other GI Surgeries/Procedures: Colonoscopy on 08/31/11 with biopsy of benign lesion from the cecum as above, laparoscopic cholecystectomy on 01/07/16 Male Surgical History: Reports: Circumcision, Other (see below). Denies: TURP-Transurethral resection of prostate, Vasectomy Other Male Surgeries/Procedures: Circumcision as a child Endocrine Surgical History: Reports: None Neurological Surgical History: Reports: None. Denies: C-Spine, Discectomy, Laminectomy, Lumbar spine, Spinal fusion, Vertebroplasty Musculoskeletal Surgical History: Reports: Arthroscopic procedure, Carpal tunnel , Shoulder surgery, Other (see below). Denies: Amputation, Arthroscopic knee, Ganglion cyst, Joint replacement, ORIF Other Musculoskeletal Surgeries/Procedures:: Rotator cuff repair on right shoulder on 09/28/11, bilateral carpal tunnel release in about 2001 Oncologic Surgical History: Reports: None Dermatological Surgical History: Reports: None - Past Imaging History Past Imaging History: Reports: CAT scan (CT scan of the abdomen and pelvis with IV and oral contrast on 12/30/15 in 01/08/16), MRI (MRI of the right shoulder on 09/05/11, MRI of the left knee on 09/09/07), Stress testing (Cardiolite Stress test on 07/03/03), Ultrasound (Gallbladder ultrasound on 12/31/15) Social & Family History - Family History HEENT: Reports: None. Denies: Allergic rhinitis, Glaucoma, Macular degeneration , Retinal detachment Cardiac: Reports: None. Denies: Afib, Aneurysm, Arrhythmia, Blood clots/VTE/DVT , Bypass, CAD, Heart failure, Heart murmur, High cholesterol, Hypertension, DE, PVD/COD, Syncope Respiratory: Reports: None. Denies: Asthma, COPD, PE, Sleep apnea GI: Reports: None. Denies: Celiac disease, Cholelithiasis, Colon polyps, GERD, GI bleed, Inflammatory bowel disease, Irritable bowel syndrome, PUD : Reports: None. Denies: Dialysis, Renal disease/insufficiency, UTI, recurrent OBGYN: Reports: None. Denies: Endometriosis, Recurrent spontaneous Musculoskeletal: Reports: None. Denies: Gout, RA, SLE Neurological: Reports: Cerebral aneurysms, CVA, Other (see below). Denies: Alzheimers disease, Dementia, Migraines, Parkinson's, Seizure, TIA Other Neurological Family History: Mother with fatal hemorrhagic CVAs secondary to cerebral aneurysm at about age 68 Endocrine/Metabolic: Reports: None. Denies: Diabetes, type I, Diabetes, type II , Hypothyroidism, IDDM Hematologic: Reports: None. Denies: Anemia, SLE Immunologic: Reports: None. Denies: AIDS, HIV, Immunosuppression Dermatologic: Reports: None. Denies: Eczema, Psoriasis Oncologic: Reports: Breast, Colon, Lung, Metastatic, Other (see below). Denies : Hodgkin's lymphoma, Leukemia, Lymphoma, Non-Hodgkin's lymphoma, Skin Other Oncologic Family History: Sister with multiple cancers including breast, colon, and lung with probable metastatic disease, another sister with breast cancer in her 70s - Tobacco Use Smoking Status *Q: Current Every Day Smoker Years of Tobacco use: 20 Packs/Tins Daily: 0 (One can per week with previous cigarette use in early adulthood and as a teenager) Second Hand Smoke Exposure: No - Caffeine Use Caffeine Use: Reports: Coffee (2 cups per day), Soda (One soda per day). Denies : Energy drinks, Tea - Alcohol Use Days Per Week of Alcohol Use: 0 (No previous DWIs, problems with alcohol abuse, etc.) Number of Drinks Per Day: 1 (Usually beer only on special occasions) Total Drinks Per Week: 0 - Recreational Drug Use Recreational Drug Use: No Drug Use in Last 12 Months: No - Living Situation & Occupation Living situation: Reports: (1968, 3 children), with family () Occupation: employed (Semiretired [employer]) [employer] [facility] - Review of Systems Review Of Systems: See Below HEENT: Reports: No symptoms Respiratory: Reports: No Symptoms Cardiovascular: Reports: No symptoms GI/Abdominal: Reports: Abdominal pain, Nausea, Vomiting Musculoskeletal: Reports: no symptoms ED EXAM, GENERAL - Physical Exam Exam: See Below Exam Limited By: No limitations General Appearance: alert, WD/WN, moderate distress Throat/Mouth: Normal oropharynx Neck: supple Respiratory/Chest: lungs clear Cardiovascular: regular rate, rhythm GI/Abdominal: soft, tender Extremities: normal inspection Course - Orders/Labs/Meds Orders: Active Orders 24 hr Category Date Time Status Abdomen Pelvis wo Cont [CT] Stat Exams 07/22/16 16:14 Taken Sodium Chloride 0.9% [Normal Saline] 1,000 ml Med 07/22/16 14:30 Active IV ASDIRECTED Sodium Chloride 0.9% [Saline Flush] Med 07/22/16 14:21 Active 10 ml FLUSH ASDIRECTED PRN Saline Lock Insert [OM.PC] Stat Oth 07/22/16 14:21 Ordered Medication Orders Sodium Chloride (Normal Saline) 1,000 mls @ 1,000 mls/hr IV ASDIRECTED MATT Last Admin: 07/22/16 14:56 Dose: 999 mls/hr Sodium Chloride (Saline Flush) 10 ml FLUSH ASDIRECTED PRN PRN Reason: Keep Vein Open Labs: Laboratory Tests 07/22/16 07/22/16 07/22/16 Range/Units 13:55 13:55 13:55 WBC 10.3 H (4.0-10.2) K/uL RBC 5.20 (4.33-5.41) M/uL Hgb 15.3 (13.1-16.8) g/dL Hct 46.4 (39.0-49.0) % MCV 89.2 (84.0-98.0) fL MCH 29.4 (28.2-33.3) pg MCHC 33.0 (31.7-36.0) g/dL RDW 14.3 H (11.2-14.1) % Plt Count 330 (150-350) K/uL Neut % (Auto) 85.4 H (45.0-80.0) % Lymph % (Auto) 11.1 (10.0-50.0) % [place] % (Auto) 3.1 (2.0-14.0) % Eos % (Auto) 0.1 (0.0-5.0) % Baso % (Auto) 0.3 (0.0-2.0) % Neut # (Auto) 8.78 H (1.40-7.00) K/uL Lymph # (Auto) 1.14 (0.50-3.50) K/uL [place] # (Auto) 0.32 (0.00-1.00) K/uL Eos # (Auto) 0.01 (0.00-0.50) K/uL Baso # (Auto) 0.03 (0.00-0.20) K/uL Sodium 137 (136-145) mmol/L Potassium 3.9 (3.5-5.1) mmol/L Chloride 102 (98-107) mmol/L Carbon Dioxide 24.7 (21.0-32.0) mmol/L BUN 31 H (7-18) mg/dL Creatinine 0.98 (0.51-1.17) mg/dL Est Cr Clr Drug Dosing TNP Estimated GFR (MDRD) > 60 mL/min Glucose 124 H (74-106) mg/dL Calcium 9.2 (8.5-10.1) mg/dL Total Bilirubin 0.4 (0.2-1.0) mg/dL AST 21 (15-37) U/L ALT 27 (12-78) U/L Alkaline Phosphatase 79 (46-116) IU/L Total Protein 7.8 (6.4-8.2) g/dL Albumin 3.7 (3.4-5.0) g/dL Lipase 188 (73-393) U/L Meds: Medications Generic Name Dose Route Start Last Admin Trade Name Freq PRN Reason Stop Dose Admin Sodium Chloride 1,000 mls @ 1,000 mls/hr 07/22/16 14:30 07/22/16 14:56 Normal Saline IV 999 mls/hr ASDIRECTED MATT Administration Sodium Chloride 10 ml 07/22/16 14:21 Saline Flush FLUSH ASDIRECTED PRN Keep Vein Open Discontinued Medications Generic Name Dose Route Start Last Admin Trade Name Freq PRN Reason Stop Dose Admin Diazepam 2.5 mg 07/22/16 14:34 07/22/16 14:51 Valium IVPUSH 07/22/16 14:35 2.5 mg ONETIME ONE Administration Iopamidol 100 ml 07/22/16 15:14 Isovue-300 (61%) IVPUSH 07/22/16 15:15 ONETIME ONE Ondansetron HCl 8 mg 07/22/16 14:21 07/22/16 14:47 Zofran IVPUSH 07/22/16 14:22 8 mg ONETIME ONE Administration Promethazine HCl 25 mg 07/22/16 16:21 07/22/16 17:02 Phenergan IM 07/22/16 16:22 25 mg ONETIME ONE Administration - Re-Assessments/Exams Free Text/Narrative Re-Assessment/Exam: 07/22/16 18:25 CT and lab WNL Pt given IM Phenergan with some improvement Departure - Departure Time of Disposition: 18:30 Disposition: Home, Self-Care 01 Clinical Impression: Intractable nausea and vomiting Qualifiers: Vomiting type: unspecified Qualified Code(s): R11.2 - Nausea with vomiting, unspecified Forms: ED Department Discharge - My Orders Last 24 Hours: My Active Orders 07/22/16 14:21 Sodium Chloride 0.9% [Saline Flush] 10 ml FLUSH ASDIRECTED PRN Saline Lock Insert [OM.PC] Stat 07/22/16 14:30 Sodium Chloride 0.9% [Normal Saline] 1,000 ml IV ASDIRECTED 07/22/16 16:14 Abdomen Pelvis wo Cont [CT] Stat - Assessment/Plan Last 24 Hours: My Active Orders 07/22/16 14:21 Sodium Chloride 0.9% [Saline Flush] 10 ml FLUSH ASDIRECTED PRN Saline Lock Insert [OM.PC] Stat 07/22/16 14:30 Sodium Chloride 0.9% [Normal Saline] 1,000 ml IV ASDIRECTED 07/22/16 16:14 Abdomen Pelvis wo Cont [CT] Stat
[2016-07-23 19:03] VITALS: BP 148/78
== END 2016-07-22 18:49 | disposition home or self-care (01) ==
LOC: LL.ED 13:35
DX: R11.2 Nausea with vomiting, unspecified (principal); E78.00 Pure hypercholesterolemia, unspecified; I10 Essential (primary) hypertension; E78.5 Hyperlipidemia, unspecified; J44.9 Chronic obstructive pulmonary disease, unspecified; J84.10 Pulmonary fibrosis, unspecified; K21.9 Gastro-esophageal reflux disease without esophagitis; Z79.82 Long term (current) use of aspirin; Z79.899 Other long term (current) drug therapy
CPT/HCPCS: 36415; 74176; 80053; 83690; 85025; 96372; 96374; 96375; 99284; J2405; J2550; J3360; J7030

== ENCOUNTER 2017-12-13 10:34 | Day surgery (SDC) | payer MEDICARE, BC ==
[~2017-12-13 10:34] MED LIST: Lactated Ringers 1,000 ML IV SCH; Sodium Chloride 0.9% 10 ML Syringe FLUSH PRN
[2017-12-13] MEDS ORDERED: Propofol 200 MG/20 ML SDV ONE ×3 (11:47→12:53)
--- NOTE | 2017-12-13 12:26 | PCM.PN ---
- General Info Date of Service: 12/13/17 - Review of Systems Systems Review Comment:: 72-year-old male here for upper endoscopy. He has a recent history of unexplained vomiting. This was followed with several days of nausea. The symptoms have abated but were unexplained.Workup has been otherwise negative.Upper endoscopy is planned today. I have discussed the proposed upper endoscopy with the patient. He understands indications options and risks and agrees to proceed. - Patient Data Vitals - Most Recent: Last Vital Signs Temp 98.2 F 12/13/17 11:10 Pulse 75 12/13/17 11:10 Resp 18 12/13/17 11:10 BP 115/84 12/13/17 11:10 Pulse Ox 96 12/13/17 11:10 Weight - Most Recent: 117.934 kg Med Orders - Current: Current Medications Lactated Ringer's (Ringers, Lactated) 1,000 mls @ 125 mls/hr IV ASDIRECTED MATT Last Admin: 12/13/17 11:08 Dose: 125 mls/hr Sodium Chloride (Saline Flush) 10 ml FLUSH ASDIRECTED PRN PRN Reason: Keep Vein Open Discontinued Medications Propofol (Diprivan 20 Ml) Confirm Administered Dose 400 mg .ROUTE .STK-MED ONE Stop: 12/13/17 11:48 - Problem List Review Problem List Initiated/Reviewed/Updated: Yes - Assessment Assessment:: unexplained vomiting - Plan Plan:: EGD
[2017-12-13] MEDS ORDERED: Glycopyrrolate 0.2 MG/ML SDV ONE (12:30)
[2017-12-13] MEDS ORDERED: Lidocaine 2% 5 ML SDV ONE (12:30)
--- NOTE | 2017-12-13 13:05 | PCM.OPNOTE ---
- General Post-Op/Procedure Note Date of Surgery/Procedure: 12/13/17 Operative Procedure(s): EGD with Biopsy Findings: Moderate sized Hiatal Hernia with Reflux Esophagitis Pre Op Diagnosis: Vomiting Post-Op Diagnosis: Hiatal Hernia. Reflux Esophagitis Anesthesia Technique: MAC Primary Surgeon: Wale Robertson Pathology: Biopsies of Duodenum, Antrum and Esophagus Output, Urine Amount: 0 EBL in mLs: 3 Complications: None Condition: Good Free Text/Narrative:: Intake & Output 12/12/17 12/13/17 12/13/17 22:59 06:59 14:59 Intake Total 700 Balance 700
--- NOTE | 2017-12-13 14:31 | OR ---
Date of Procedure: 12/13/2017 PREOPERATIVE DIAGNOSIS: Vomiting. POSTOPERATIVE DIAGNOSES: Hiatal hernia with reflux esophagitis. OPERATION PERFORMED: Esophagogastroduodenoscopy with biopsy. INDICATIONS FOR SURGERY: This 72-year-old male had a recent episode of unexplained vomiting and this was followed by persistent nausea for several days. The patient states that he has had somewhat similar episodes in the past and the etiology for these is unclear. He denies heartburn symptoms on a regular basis. He is referred for upper endoscopy. FINDINGS: The patient has a moderate-sized hiatal hernia, estimated at 3 cm in size. There is some irregularity and inflammation seen of the GE junction at the 37 cm level and areas of inflammation of the distal esophagus extending approximately 2 to 3 cm with some exudate. There is no mass effect or stenosis. The remainder of the esophagus appears normal. The remainder of the stomach also appears normal. No evidence of ulcers or other mucosal abnormalities were seen. The duodenum is normal as viewed. DESCRIPTION OF PROCEDURE: The patient was taken to the operating room. He was given intravenous sedation and with him in the left lateral decubitus position, the esophagus was intubated with the Olympus gastroscope and it was passed through the mouth guard. The scope was advanced under direct visualization through the esophagus, stomach, and duodenum, where examination to the fourth portion was performed. Biopsies of the duodenal mucosa were taken randomly. The stomach was then carefully examined and random biopsies of the antrum were taken to rule out H. pylori. Full examination of the stomach including retroflexed examination of the fundus was performed. The GE junction and distal esophagus were then carefully examined. Biopsies of the distal esophagus were taken at the GE junction and also superior to this area to evaluate the visible inflammation and rule out Villatoro's esophagus. After the biopsies had been completed, the scope was withdrawn and removed. The patient was awakened and taken from the operating room in satisfactory condition. ESTIMATED BLOOD LOSS: 3 mL. COMPLICATIONS: None. PROGNOSIS: Good. SANDRA Robertson MD /[id number]
[2017-12-13 15:20] VITALS: BP 126/76
== END 2017-12-13 14:25 | disposition home or self-care (01) ==
LOC: LL.SDS 10:34
PROVIDERS: ATTEND Surgery
DX: K22.10 Ulcer of esophagus without bleeding (principal); K29.80 Duodenitis without bleeding; K21.0 Gastro-esophageal reflux disease with esophagitis; K31.9 Disease of stomach and duodenum, unspecified; K44.9 Diaphragmatic hernia without obstruction or gangrene; I10 Essential (primary) hypertension; J44.9 Chronic obstructive pulmonary disease, unspecified; E66.9 Obesity, unspecified; E78.5 Hyperlipidemia, unspecified; Z79.82 Long term (current) use of aspirin; Z79.899 Other long term (current) drug therapy
CPT/HCPCS: 00731; J2704; J3490; J7120

== ENCOUNTER 2019-04-17 08:53 | Day surgery (SDC) | payer MEDICARE, BC ==
[~2019-04-17 08:53] MED LIST changes: +Midazolam 1 MG/ML 2 ML SDV ONE; +Propofol 200 MG/20 ML SDV ONE
--- NOTE | 2019-04-17 09:59 | PCM.PN ---
- General Info Date of Service: 04/17/19 - Review of Systems Systems Review Comment:: 73-year-old male referred for colonoscopy. This is a surveillance exam. He has a history of colon polyps. The patient denies any recent problems with bowel function or rectal bleeding.His recent history and physical is reviewed and no significant changes are noted. I discussed the proposed colonoscopy with the patient. Risks such as but not limited to bleeding and GI injury reviewed. He agrees to proceed. - Patient Data Vitals - Most Recent: Last Vital Signs Temp 97.7 F 04/17/19 09:21 Pulse 18 L 04/17/19 09:21 Resp 18 04/17/19 09:21 BP 134/87 04/17/19 09:21 Pulse Ox 96 04/17/19 09:21 Weight - Most Recent: 122.47 kg Med Orders - Current: Current Medications Lactated Ringer's (Ringers, Lactated) 1,000 mls @ 125 mls/hr IV ASDIRECTED MATT Last Admin: 04/17/19 09:41 Dose: 125 mls/hr Sodium Chloride (Saline Flush) 10 ml FLUSH ASDIRECTED PRN PRN Reason: Keep Vein Open Discontinued Medications Midazolam HCl (Versed 1 Mg/Ml) Confirm Administered Dose 2 mg .ROUTE .STK-MED ONE Stop: 04/17/19 08:40 Propofol (Diprivan 20 Ml) Confirm Administered Dose 200 mg .ROUTE .STK-MED ONE Stop: 04/17/19 08:41 Sepsis Event Note - Focused Exam Vital Signs: Vital Signs Temp Pulse Resp BP Pulse Ox 04/17/19 09:21 97.7 F 18 L 18 134/87 96 Date Exam was Performed: 04/17/19 Time Exam was Performed: 09:58 - Problem List Review Problem List Initiated/Reviewed/Updated: Yes - Assessment Assessment:: history of colon polyps - Plan Plan:: colonoscopy
[2019-04-17] MEDS ORDERED: Propofol 200 MG/20 ML SDV ONE ×3 (10:00→10:41)
[2019-04-17] MEDS ORDERED: Midazolam 1 MG/ML 2 ML SDV ONE (10:00)
--- NOTE | 2019-04-17 10:41 | PCM.OPNOTE ---
- General Post-Op/Procedure Note Date of Surgery/Procedure: 04/17/19 Operative Procedure(s): Colonoscopy with Polypectomy Findings: Small Descending colon polyp Mild Sigmoid Diverticulosis Pre Op Diagnosis: History of colon polyps Post-Op Diagnosis: Colon Polyp. Sigmoid Diverticulosis Anesthesia Technique: MAC Primary Surgeon: Wale Robertson Pathology: Colon polyp EBL in mLs: 0 Complications: None Condition: Good
[2019-04-17 11:27] VITALS: BP 137/85; PULSE 66
--- NOTE | 2019-04-17 12:50 | OR ---
Date of Procedure: 04/17/2019 PREOPERATIVE DIAGNOSIS: History of colon polyps. POSTOPERATIVE DIAGNOSES: Colon polyp, sigmoid diverticulosis. OPERATION PERFORMED: Colonoscopy with polypectomy. INDICATIONS FOR SURGERY: This 73-year-old male has a known history of colon polyps. He comes today for surveillance colonoscopy. FINDINGS: A single polyp was noted today in the descending colon, 30 cm from the anal verge. This is a 6 mm sessile, somewhat irregular polyp. The patient also has a mild degree of sigmoid diverticulosis, which does not appear to be acutely inflamed or otherwise complicated. The colon is otherwise normal. DESCRIPTION OF PROCEDURE: The patient was taken to the operating room. He was given intravenous sedation, and with him in the left lateral decubitus position, digital rectal exam was performed. No rectal masses were noted. The Olympus colonoscope was inserted into the rectum. Retroflexed examination of the rectal canal was performed. The scope was then carefully advanced under direct visualization through the entire length of the colon until the cecum was reached. Cecal acquisition was confirmed by noting the normal internal cecal anatomy including the appendiceal orifice and ileocecal valve. The light was also noted to transilluminate the abdominal wall in the right lower quadrant. After examining the cecum, the scope was slowly withdrawn sequentially re- examining the colonic segments. In the descending colon, the above-described polyp was identified. This was removed with a cautery snare and retrieved. Examination was then completed and with no sign of any complication, and after the entire colon and rectum had been fully examined, the scope was removed and the patient was taken from the operating room in satisfactory condition. ESTIMATED BLOOD LOSS: 0. COMPLICATIONS: None. PROGNOSIS: Good. SANDRA Robertson MD /[id number]
== END 2019-04-17 12:00 | disposition home or self-care (01) ==
LOC: LL.SDS 08:53
PROVIDERS: ATTEND Surgery
DX: Z12.11 Encounter for screening for malignant neoplasm of colon (principal); D12.4 Benign neoplasm of descending colon; K57.30 Diverticulosis of large intestine without perforation or abscess without bleeding; K21.9 Gastro-esophageal reflux disease without esophagitis; I10 Essential (primary) hypertension; E78.5 Hyperlipidemia, unspecified; Z86.010 Personal history of colon polyps; Z79.899 Other long term (current) drug therapy; Z79.82 Long term (current) use of aspirin
CPT/HCPCS: 45385; J2250; J2704; J7120; 00812

== ENCOUNTER 2019-09-01 14:23 | Emergency (ER) | payer MEDICARE, BC ==
--- NOTE | 2019-09-01 14:59 | EDM.PDOC ---
ED HPI GENERAL MEDICAL PROBLEM - General Chief Complaint: Lower Extremity Injury/Pain Stated Complaint: Leg wound Time Seen by Provider: 09/01/19 14:30 Source of Information: Reports: Patient History Limitations: Reports: No Limitations - History of Present Illness INITIAL COMMENTS - FREE TEXT/NARRATIVE: Pt presents to ER with wound to right anterior patterson Pt hit patterson with metal object Tetanus unknown Has open wound to anterior patterson Onset: Today, Sudden Duration: Hour(s): Context: Reports: Trauma - Related Data Allergies Allergy/AdvReac Type Severity Reaction Status Date / Time atorvastatin [From Lipitor] Allergy Muscle Unverified 04/17/19 09:34 Aches Home Meds: Home Meds Aspirin [Leonardo Chewable Aspirin] 81 mg PO DAILY 12/30/15 [History] Fenofibrate,Micronized [Fenofibrate] 134 mg PO BEDTIME 12/30/15 [History] Lisinopril 5 mg PO BID 12/30/15 [History] Omeprazole 20 mg PO BID 04/16/19 [History] Ondansetron [Zofran] 4 mg PO Q8H PRN 04/16/19 [History] Past Medical History HEENT History: Reports: Impaired Vision, Other (See Below) Other HEENT History: glasses Cardiovascular History: Reports: High Cholesterol, Hypertension Other Cardiovascular History: History of dyslipidemia with secondary fatty liver Respiratory History: Reports: COPD Gastrointestinal History: Reports: Colon Polyp, Diverticulosis, GERD, Other ( See Below) Other Gastrointestinal History: Benign adenomatous polyp Genitourinary History: Reports: BPH. Denies: Acute Renal Failure, Chronic Renal Insuffiency, Renal Calculus, Retention, Urinary, STD, Urinary Incontinence , UTI, Recurrent Musculoskeletal History: Reports: Arthritis, Back Pain, Chronic, Fracture, Neck Pain, Chronic, Osteoarthritis, Other (See Below) Other Musculoskeletal History: History of left-sided rib fractures #6 through 9 on 12/21/01, left medial meniscal tear by MRI on 09/09/07 with no surgery Neurological History: Reports: None, Other (See Below) Other Neuro History: Questionable single TIA prior to diagnosis of lymphoma Psychiatric History: Reports: None. Denies: Abuse, Victim of, ADD, ADHD, Addiction, Anxiety, Dementia, Depression, Psych Hospitalization(s), PTSD, Suicide Attempt, Suicidal Ideation Endocrine/Metabolic History: Reports: Obesity/BMI 30+ Hematologic History: Reports: None. Denies: Anemia, B12 Deficiency, Blood Transfusion(s) Other Hematologic History: transfusion of 2 units in February 2013, subsequent transfusion in March 2013 Immunologic History: Reports: None. Denies: AIDS, HIV, SLE Other Immunologic History: Immunosuppression with previous chemotherapy for lymphoma with no problems currently Oncologic (Cancer) History: Reports: None. 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 Additional Waldenstrom's macroglobulinemia; patient has been cancer free since fall [address] scans as below. Note previous chemotherapy with no radiation therapy Dermatologic History: Reports: None. Denies: Angiodema, Eczema, Psoriasis - Infectious Disease History Infectious Disease History: Reports: Chicken Pox - Past Surgical History GI Surgical History: Reports: Cholecystectomy Musculoskeletal Surgical History: Reports: Other (See Below) Other Musculoskeletal Surgeries/Procedures:: Right rotator cuff repair - Past Imaging History Past Imaging History: Reports: CAT Scan, MRI, Stress Testing, Ultrasound Social & Family History - Family History HEENT: Reports: None. Denies: Allergic Rhinitis, Glaucoma, Macular Degeneration , Retinal Detachment Cardiac: Reports: None. Denies: Afib, Aneurysm, Arrhythmia, Blood Clots/VTE/DVT , Bypass, CAD, Heart Failure, Heart Murmur, High Cholesterol, Hypertension, PA, PVD/COD, Syncope Respiratory: Reports: None. Denies: Asthma, COPD, PE, Sleep Apnea GI: Reports: None. Denies: Celiac Disease, Cholelithiasis, Colon Polyps, GERD, GI bleed, Inflammatory Bowel Disease, Irritable Bowel Syndrome, PUD : Reports: None. Denies: Dialysis, Renal Disease/Insufficiency, UTI, Recurrent OBGYN: Reports: None. Denies: Endometriosis, Recurrent Spontaneous Musculoskeletal: Reports: None. Denies: Gout, RA, SLE Neurological: Reports: Cerebral Aneurysms, CVA, Other (See Below) Other Neurological Family History: Mother with fatal hemorrhagic CVAs secondary to cerebral aneurysm at about age 68 Endocrine/Metabolic: Reports: None. Denies: Diabetes, Type I, Diabetes, type II , Hypothyroidism, IDDM Hematologic: Reports: None. Denies: Anemia, SLE Immunologic: Reports: None. Denies: AIDS, HIV, Immunosuppression Dermatologic: Reports: None. Denies: Eczema, Psoriasis Oncologic: Reports: Breast, Colon, Lung, Metastatic, Other (See Below) Other Oncologic Family History: Sister with multiple cancers including breast, colon, and lung with probable metastatic disease, another sister with breast cancer in her 70s - Tobacco Use Smoking Status *Q: Never Smoker - Caffeine Use Caffeine Use: Reports: Coffee - Living Situation & Occupation Living situation: Reports: , with Family Occupation: Employed Review of Systems - Review of Systems Review Of Systems: See Below Skin: Reports: Other (3 cm wound to right anterior patterson) ED EXAM, GENERAL - Physical Exam Exam: See Below Skin Exam: Wound/Incision, Other (3 cm wound to anterior patterson Puncture type woound with skin tear Unable to suture due to type of wound) Course - Orders/Labs/Meds Orders: Active Orders 24 hr Category Date Time Status Tibia Fibula Rt [CR] Stat Exams 09/01/19 14:31 Taken - Re-Assessments/Exams Free Text/Narrative Re-Assessment/Exam: 09/01/19 14:57 Dressing applied per nurse Departure - Departure Time of Disposition: 15:00 Disposition: Home, Self-Care 01 Clinical Impression: Laceration of leg Qualifiers: Encounter type: initial encounter Laterality: right Qualified Code(s): S81.811A - Laceration without foreign body, right lower leg, initial encounter - Discharge Information *PRESCRIPTION DRUG MONITORING PROGRAM REVIEWED*: Not Applicable *COPY OF PRESCRIPTION DRUG MONITORING REPORT IN PATIENT DANNA: Not Applicable Instructions: Laceration Care, Adult Referrals: Tiffany Khanna PA [Primary Care Provider] - Additional Instructions: Keep wound clean Follow up in clinic Return for signs of infection - My Orders Last 24 Hours: My Active Orders 09/01/19 14:31 Tibia Fibula Rt [CR] Stat - Assessment/Plan Last 24 Hours: My Active Orders 09/01/19 14:31 Tibia Fibula Rt [CR] Stat
[2019-09-01 15:00] VITALS: BP 149/82; PULSE 84
== END 2019-09-01 15:55 | disposition home or self-care (01) ==
LOC: LL.ED 14:23
DX: S81.811A Laceration without foreign body, right lower leg, initial encounter (principal); I10 Essential (primary) hypertension; E78.5 Hyperlipidemia, unspecified; J44.9 Chronic obstructive pulmonary disease, unspecified; K21.9 Gastro-esophageal reflux disease without esophagitis; Z88.8 Allergy status to other drugs, medicaments and biological substances; Z79.82 Long term (current) use of aspirin; Z79.899 Other long term (current) drug therapy; W22.8XXA Striking against or struck by other objects, initial encounter; M19.90 Unspecified osteoarthritis, unspecified site; E66.9 Obesity, unspecified
CPT/HCPCS: 73590-RT; 99283

== ENCOUNTER 2022-04-13 08:55 | Day surgery (SDC) | payer MEDICARE ==
[~2022-04-13 08:55] MED LIST changes: -Lactated Ringers 1,000 ML IV SCH
[2022-04-13] MEDS: Lactated Ringers 1,000 ML IV SCH (09:18)
[2022-04-13 17:25] VITALS: BP 154/89; PULSE 66
== END 2022-04-13 11:30 | disposition home or self-care (01) ==
LOC: LL.SDS 08:55
PROVIDERS: ATTEND Surgery
DX: Z12.11 Encounter for screening for malignant neoplasm of colon (principal); D12.7 Benign neoplasm of rectosigmoid junction; D12.0 Benign neoplasm of cecum; D12.3 Benign neoplasm of transverse colon; I10 Essential (primary) hypertension; E78.5 Hyperlipidemia, unspecified; K21.9 Gastro-esophageal reflux disease without esophagitis; E66.09 Other obesity due to excess calories; Z86.010 Personal history of colon polyps; Z68.37 Body mass index [BMI] 37.0-37.9, adult
CPT/HCPCS: J2250; J2704; J7120